=== PATIENT | male | born 1970 | race Caucasian/White ===

== ENCOUNTER → 2018-06-17 | Outpatient (CLI) | payer OTHER ==
[~2018-06-17] MED LIST: CEPHALEXIN500 M1 PO; MOTRIN 600600 MG/TAB PO; NO HOME MEDICATIONS; PERCOCET 325 MG1 TA2 PO; PREDNISONE20 MG PO
== END ==
LOC: COL.RAD 10:28
DX: M51.37 Other intervertebral disc degeneration, lumbosacral region (principal); Z98.890 Other specified postprocedural states
CPT/HCPCS: A9585

== ENCOUNTER 2018-06-23 14:04 | Outpatient (RCR) | payer OTHER | END 2018-07-23 | disposition home or self-care (01) | LOC: WSOH | DX: M51.36 Other intervertebral disc degeneration, lumbar region (principal); Z98.890 Other specified postprocedural states; Z87.891 Personal history of nicotine dependence; Z79.1 Long term (current) use of non-steroidal anti-inflammatories (NSAID); Z79.899 Other long term (current) drug therapy ==

== ENCOUNTER 2018-10-15 10:27 | Outpatient (RCR) | payer OTHER | END 2019-01-13 | disposition home or self-care (01) | LOC: WSOH | DX: M54.32 Sciatica, left side (principal); M51.36 Other intervertebral disc degeneration, lumbar region; M25.552 Pain in left hip; Z98.1 Arthrodesis status; Z87.891 Personal history of nicotine dependence ==

== ENCOUNTER → 2019-04-08 | Outpatient (CLI) | payer OTHER | LOC: COL.RAD 14:45 | DX: M23.311 Other meniscus derangements, anterior horn of medial meniscus, right knee (principal) ==

== ENCOUNTER 2020-11-02 09:52 | Outpatient (RCR) | payer OTHER | END 2020-11-28 | disposition home or self-care (01) | LOC: WSOH | DX: S20.222A Contusion of left back wall of thorax, initial encounter (principal); S22.32XA Fracture of one rib, left side, initial encounter for closed fracture; M19.90 Unspecified osteoarthritis, unspecified site; Z98.890 Other specified postprocedural states; Z87.891 Personal history of nicotine dependence; Y99.0 Civilian activity done for income or pay ==

== ENCOUNTER → 2020-11-24 | Outpatient (CLI) | payer OTHER | LOC: COL.RAD 06:54 | DX: S20.222D Contusion of left back wall of thorax, subsequent encounter (principal); S22.32XD Fracture of one rib, left side, subsequent encounter for fracture with routine healing; M47.22 Other spondylosis with radiculopathy, cervical region ==

== ENCOUNTER 2020-11-29 11:06 | Outpatient (RCR) | payer OTHER | END 2020-11-30 10:35 | LOC: WSOH 11:06 | DX: S22.32XD Fracture of one rib, left side, subsequent encounter for fracture with routine healing (principal); S20.222D Contusion of left back wall of thorax, subsequent encounter; M47.22 Other spondylosis with radiculopathy, cervical region; M19.90 Unspecified osteoarthritis, unspecified site; Z87.891 Personal history of nicotine dependence; Z98.890 Other specified postprocedural states; Y99.0 Civilian activity done for income or pay ==

== ENCOUNTER → 2021-02-06 | Outpatient (CLI) | payer OTHER ==
[2021-02-06 08:39] LABS: COLLECTION METHOD CLEAN CATCH
[2021-02-06 08:48] LABS: BASO % 0.2 % (0.0-2.0); EOS # 0.1 (0.0-0.7); EOS % 2.2 % (0-4.0); GRAN # 3.2 (1.4-6.5); GRAN % 58.1 % (42.2-75.2); HEMATOCRIT 48.8 % (42.0-52.0); HEMOGLOBIN 15.3 g/dl (13.5-18.0); LYMPH # 1.7 (1.2-3.4); LYMPH % 30.8 % (20.0-51.0); MEAN CELL VOLUME 85 fl (80.0-100.0); MEAN CORPUSCULAR HEMOGLOBIN 27 pg (27.0-31.0); MEAN CORPUSCULAR HGB CONC 31 g/dl (33.0-37.0); MONO # 0.5 (0.1-0.6); MONO % 8.3 % (1.7-9.3); PLATELET COUNT 240 K/mm3 (130-400); RED BLOOD COUNT 5.77 M/mm3 (4.20-5.60); REDCELL DISTRIBUTION WIDTH-CV 13.3 % (11.5-14.5)
[2021-02-06 08:48] LABS: MUCOUS Present /lpf; PH 6 (5-8); SQUAMOUS EPITHELIAL None Seen /hpf; URINE APPEARANCE Clear; URINE BACTERIA None Seen /hpf; URINE BILIRUBIN Negative (NEGATIVE); URINE BLOOD Negative (NEGATIVE); URINE COLOR Yellow; URINE GLUCOSE Negative (NEGATIVE); URINE KETONE Negative (NEGATIVE); URINE LEUKOCYTE ESTERASE Negative (NEGATIVE); URINE NITRATE Negative (NEGATIVE); URINE PROTEIN(semi-quant) Negative (NEGATIVE); URINE RBC 0-2 /hpf; URINE UROBILINOGEN Negative (NEGATIVE)
[2021-02-06 08:51] LABS: INR 1.1 (0.8-3.0); PROTHROMBIN TIME 11.8 SECONDS (9.7-12.8)
[2021-02-06 08:52] LABS: CALCIUM 9.4 mg/dL (8.4-10.2); CREATININE, serum 0.93 (0.66-1.25); POTASSIUM 4.6 mmol/L (3.4-5.0)
[2021-02-06 08:54] LABS: PARTIAL THROMBOPLASTIN TIME 41.4 SECONDS (26.0-37.0)
== END ==
LOC: COL.LAB 08:14
PROVIDERS: Orthopaedic Surgery Orthopaedic Surgery of the Spine
DX: M48.02 Spinal stenosis, cervical region (principal); M50.120 Mid-cervical disc disorder, unspecified level

== ENCOUNTER 2022-02-14 20:12 | Emergency (ER) | payer BC ==
[2022-02-14 20:36] LABS: BASO % 0.4 % (0.0-2.0); EOS # 0.2 K/mm3 (0.0-0.7); EOS % 2.9 % (0.0-4.0); GRAN # 4.7 K/mm3 (1.4-6.5); GRAN % 61.5 % (42.2-75.2); HEMOGLOBIN 14.5 g/dl (13.5-18.0); LYMPH % 26.2 % (20.0-51.0); MEAN CELL VOLUME 82 fl (80.0-100.0); MEAN CORPUSCULAR HEMOGLOBIN 27 pg (27-31); MEAN CORPUSCULAR HGB CONC 32 g/dl (33.0-37.0); MEAN PLATELET VOLUME 9.5 fl (7.4-10.4); MONO # 0.7 K/mm3 (0.1-0.6); MONO % 8.9 % (1.7-9.3); PLATELET COUNT 250 K/mm3 (130-400); RED BLOOD COUNT 5.47 M/mm3 (4.20-5.60); REDCELL DISTRIBUTION WIDTH-CV 13.6 % (11.5-14.5)
[2022-02-14 20:50] LABS: ALBUMIN 4.1 gm/dL (3.5-5.0); BILIRUBIN,TOTAL 0.5 mg/dL (0.2-1.2); CALCIUM 9.2 mg/dL (8.4-10.2); CREATININE, serum 0.91 mg/dL (0.72-1.25); TOTAL PROTEIN 7.7 gm/dL (6.2-8.1)
[2022-02-14 20:55] LABS: TROPONIN-I 0.01 ng/mL (0.00-0.033)
[2022-02-14] MEDS ORDERED: FLEXERIL 1010 MG/TAB PO (21:07)
[2022-02-14 21:44] VITALS: BP 123/80; PULSE 78; TEMP 98.8
== END 2022-02-14 21:45 | disposition home or self-care (01) ==
LOC: COL.ER 20:12
PROVIDERS: Emergency Medicine
DX: S29.012A Strain of muscle and tendon of back wall of thorax, initial encounter (principal); Z98.890 Other specified postprocedural states; X58.XXXA Exposure to other specified factors, initial encounter; Y92.513 Shop (commercial) as the place of occurrence of the external cause; Y99.0 Civilian activity done for income or pay
CPT/HCPCS: J1885; J2270; J2360